=== PATIENT | female | born 1955 | race Caucasian/White ===

== ENCOUNTER 2025-01-15 07:55 | Emergency (ER) | payer OTHER ==
[~2025-01-15] VITALS: Ht 167.6 cm; Wt 58.0 kg
[2025-01-15 08:00] VITALS: TEMP 36.9; O2SAT 99
[2025-01-15] MEDS: TETANUS, DIPHTHERIA, PERTUSSIS VAC/PF 0.5ML (>10YR OLD) IM ONE (08:45)
[2025-01-15 08:48] VITALS: BP 129/49; PULSE 55; RESP 16; O2SAT 98
== END 2025-01-15 08:48 | disposition home or self-care (01) ==
LOC: ER 07:55
DX: S51.811A Laceration without foreign body of right forearm, initial encounter (principal); Z90.710 Acquired absence of both cervix and uterus; Z88.0 Allergy status to penicillin; Z88.1 Allergy status to other antibiotic agents; X58.XXXA Exposure to other specified factors, initial encounter; Y93.89 Activity, other specified; Y92.89 Other specified places as the place of occurrence of the external cause; Y99.8 Other external cause status
CPT/HCPCS: 90715; 90471; 99283; Z7610